=== PATIENT | male | born 1980 | race African-American/Black ===

== ENCOUNTER 2019-09-20 15:14 | Emergency (ER) | payer MEDICARE, OTHER ==
[~2019-09-20] VITALS: Ht 188 cm; Wt 109.5 kg
[2019-09-20 16:17] VITALS: BP 131/74
== END 2019-09-20 16:30 | disposition home or self-care (01) ==
LOC: FSED 15:14
DX: J02.9 Acute pharyngitis, unspecified (principal)
CPT/HCPCS: 83518; 87400; 99283

== ENCOUNTER 2019-10-05 23:17 | Emergency (ER) | payer MEDICARE, OTHER ==
[~2019-10-05] VITALS: Ht 188 cm; Wt 109.3 kg
--- OUTSIDE RECORDS SUMMARY | 2019-10-10 12:40 | XMS REPORT ---
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 Conditions or Problems Problem Name Problem Code Onset Date Status Entry Date Provider Comment Standard Description Annotate Folliculitis 704.8 Active Tyrone Mott MD Other specified diseases of hair and hair follicles High risk sexual behavior V69.2 Active Moreno Presley MD High-risk sexual behavior Tinea cruris 110.3 Active Moreno Presley MD Dermatophytosis of groin and perianal area Screening examination for venereal disease V74.5 Active Michael Monge MD Screening examination for venereal disease Screening for lipid disorder V77.91 Active Michael Monge MD Screening for lipoid disorders Screening, diabetes mellitus V77.1 Active Michale Monge MD Screening for diabetes mellitus Cough 786.2 Active Saravanan Braden EMBROIDERY FINISHER-C Cough Postnasal drip 784.91 Active Saravanan Braden EMBROIDERY FINISHER-C Postnasal drip Halitosis 784.99 Active Michael Monge MD Other symptoms involving head and neck Health screening V70.0 Active Ginette Hopkins RN Routine general medical examination at a health care facility PHARYNGITIS 462 Active Michael Monge MD Acute pharyngitis TINEA CRURIS 110.3 Active Solo MALDONADO Dermatophytosis of groin and perianal area CHLAMYDIAL INFECTION 099.41 Active Solo MALDONADO Nongonococcal urethritis [CHAU] due to Chlamydia trachomatis FAMILY PLANNING V25.09 Active Solo MALDONADO Encounter for other general counseling and advice on contraceptive management EXPOSURE TO, SEXUALLY TRANSMITTED DISEASE V01.6 Active Michael Monge MD Contact with or exposure to venereal diseases OTHER SYMPTOMS INVOLVING HEAD AND NECK 784.99 Active Michael Monge MD Other symptoms involving head and neck halitosis HYPERTENSION 401.9 Active Solo MALDONADO Unspecified essential hypertension Medication List Medication Instructions Start Date Stop Date Generic Name NDC Status Provider Patient Instruction KETOCONAZOLE 2 % EXTERNAL CREAM Apply to affected area daily x2 wks KETOCONAZOLE 95176108954 Active Jesus Cupit EMBROIDERY FINISHER Active NYSTATIN 941429 UNIT/GM EXTERNAL POWDER Apply to affected area two to three times daily after showering NYSTATIN 45363438932 Active Jesus Cupit EMBROIDERY FINISHER Active DOXYCYCLINE HYCLATE 100 MG ORAL CAPSULE 1 by mouth twice a day DOXYCYCLINE HYCLATE 100 MG ORAL CAPSULE 7890474 DOXYCYCLINE HYCLATE Inactive CICLOPIROX OLAMINE 0.77 % EXTERNAL CREAM apply to affected area every 12 hours (pharmacist, you may substitute ointment or gel if better cost) CICLOPIROX OLAMINE 0.77 % EXTERNAL CREAM 120421 CICLOPIROX OLAMINE Inactive KETOCONAZOLE 2 % EXTERNAL CREAM apply to area twice a day KETOCONAZOLE 2 % EXTERNAL CREAM 174278 KETOCONAZOLE Inactive KETOCONAZOLE 2 % EXTERNAL CREAM apply to area twice a day KETOCONAZOLE 2 % EXTERNAL CREAM 030529 KETOCONAZOLE Inactive AZITHROMYCIN 250 MG ORAL TABLET 2 tablets by mouth on day one then one tablet by mouth each day for a total of 5 days AZITHROMYCIN 250 MG ORAL TABLET 332938 AZITHROMYCIN Inactive CLARITIN 10 MG ORAL TABLET 1 by mouth every day for 7 days then As Needed for allergies CLARITIN 10 MG ORAL TABLET 216037 LORATADINE Inactive KETOCONAZOLE 2 % EXTERNAL CREAM apply to area twice a day KETOCONAZOLE 2 % EXTERNAL CREAM 20300529 KETOCONAZOLE Inactive TESSALON PERLES 100 MG ORAL CAPSULE 1 by mouth 3 times a day as needed for cough TESSALON PERLES 100 MG ORAL CAPSULE 197777 BENZONATATE Inactive FLUCONAZOLE 200 MG ORAL TABLET 1 By Mouth once a week for 4 weeks FLUCONAZOLE 200 MG ORAL TABLET FLUCONAZOLE Inactive KETOCONAZOLE 2 % EXTERNAL CREAM apply to area twice a day KETOCONAZOLE 2 % EXTERNAL CREAM 20300529 KETOCONAZOLE Inactive KETOCONAZOLE 2 % EXTERNAL CREAM apply to area twice a day KETOCONAZOLE 2 % EXTERNAL CREAM 20300529 KETOCONAZOLE Inactive KETOCONAZOLE 2 % EXTERNAL CREAM apply to area twice a day KETOCONAZOLE 2 % EXTERNAL CREAM 20300529 KETOCONAZOLE Inactive KETOCONAZOLE 2 % EXTERNAL CREAM apply to area twice a day KETOCONAZOLE 2 % EXTERNAL CREAM 20300529 KETOCONAZOLE Inactive DOXYCYCLINE HYCLATE 100 MG ORAL CAPSULE 1 by mouth twice a day DOXYCYCLINE HYCLATE 21377497814 No Longer Active Jesus SWARTZ Active CICLOPIROX OLAMINE 0.77 % EXTERNAL CREAM apply to affected area every 12 hours (pharmacist, you may substitute ointment or gel if better cost) CICLOPIROX OLAMINE 21369982169 No Longer Active Jesus SWARTZ Active KETOCONAZOLE 2 % EXTERNAL CREAM apply to area twice a day KETOCONAZOLE 25333381258 No Longer Active Michael Mariposa GARY Active KETOCONAZOLE 2 % EXTERNAL CREAM apply to area twice a day KETOCONAZOLE 79005380334 No Longer Active Michael Mariposa GARY Active AZITHROMYCIN 250 MG ORAL TABLET 2 tablets by mouth on day one then one tablet by mouth each day for a total of 5 days AZITHROMYCIN 26585640682 No Longer Active Michael Mariposa GARY Active CLARITIN 10 MG ORAL TABLET 1 by mouth every day for 7 days then As Needed for allergies LORATADINE 90056109893 No Longer Active Michael Mariposa GARY Active KETOCONAZOLE 2 % EXTERNAL CREAM apply to area twice a day KETOCONAZOLE 23392216333 No Longer Active Saravanan Braden EMBROIDERY FINISHER-C Active TESSALON PERLES 100 MG ORAL CAPSULE 1 by mouth 3 times a day as needed for cough BENZONATATE 81875157908 No Longer Active Michael Mariposa GARY Active FLUCONAZOLE 200 MG ORAL TABLET 1 By Mouth once a week for 4 weeks FLUCONAZOLE 95004651425 No Longer Active Michael Mariposa GARY Active KETOCONAZOLE 2 % EXTERNAL CREAM apply to area twice a day KETOCONAZOLE 81083523530 No Longer Active Michael Mariposa GARY Active KETOCONAZOLE 2 % EXTERNAL CREAM apply to area twice a day KETOCONAZOLE 39108718420 No Longer Active Donaldo Jackson SINTERING PRESS OPERATOR-C Active KETOCONAZOLE 2 % EXTERNAL CREAM apply to area twice a day KETOCONAZOLE 35149465061 No Longer Active Solo MALDONADO Active KETOCONAZOLE 2 % EXTERNAL CREAM apply to area twice a day KETOCONAZOLE 61896359345 No Longer Active Solo MALDONADO Active Advance Directives Directive Description Start Date DISCUSSED - NO DECISION MADE Vital Signs Date Name Value Unit Range Description blood pressure, diastolic 92 mm[Hg] BP cooper blood pressure, systolic 152 mm[Hg] BP sys height E&M 74 [in_us] Bdy height pulse rate E&M 85 /min Heart rate respiratory rate E&M 12 /min Resp rate temperature E&M 98.2 [degF] Body temperature weight E&M 248.50 [lb_av] Weight Measured blood pressure, diastolic 90 mm[Hg] BP cooper blood pressure, systolic 149 mm[Hg] BP sys height E&M 74 [in_us] Bdy height pulse rate E&M 61 /min Heart rate temperature E&M 97.9 [degF] Body temperature weight E&M 249 [lb_av] Weight Measured blood pressure, diastolic 84 mm[Hg] BP cooper blood pressure, systolic 145 mm[Hg] BP sys height E&M 74 [in_us] Bdy height pulse rate E&M 58 /min Heart rate respiratory rate E&M 15 /min Resp rate temperature E&M 97.9 [degF] Body temperature weight E&M 248 [lb_av] Weight Measured Diagnostic Results Date Name Value Unit Range Description Lab Report: Comp. Metabolic Panel (14), Lipid Panel - Chemistry very low density lipoproteins 16 mg/dL 5-40 Lab Report: RPR, Rfx Qn RPR/Confirm TP, Panel [id number], HCV Antibody, HBsA ... - Chemistry hepatitis B surface antigen Negative Negative Lab Report: Comp. Metabolic Panel (14), Lipid Panel - Chemistry chloride, serum 99 mmol/L 96-106 urea nitrogen, blood 20 mg/dL 6-20 Lab Report: CBC With Differential/Platelet, Lipid Panel, Panel [id number], C ... - Serology HIV-1/HIV-2 Ab, serum Non Reactive Non Reactive Lab Report: CBC With Differential/Platelet, Lipid Panel, Panel [id number], C ... - Hematology mean corpuscular hemoglobin concentration, RBC 33.7 G/DL % 31.5-35.7 erythrocyte (RBC) count 5.08 X10E6/UL 10*6/mm3 4.14-5.80 Lab Report: RPR, Rfx Qn RPR/Confirm TP, Panel [id number], HCV Antibody, HBsA ... - Serology hepatitis C antibody, serum <0.1 0.0-0.9 Lab Report: CBC With Differential/Platelet, Lipid Panel, Panel [id number], C ... - Chemistry Absolute Neutrophils 2.3 X10E3/UL 10*3/uL 1.4-7.0 Lab Report: Comp. Metabolic Panel (14), Lipid Panel - Chemistry LDL cholesterol, serum 158 mg/dL 0-99 urea nitrogen/creatinine ratio, serum 18 9-20 Lab Report: CBC With Differential/Platelet, Lipid Panel, Panel [id number], C ... - Hematology mean corpuscular volume, RBC 93 fL 79-97 Lab Report: Comp. Metabolic Panel (14), Lipid Panel - Chemistry HDL cholesterol, serum 44 mg/dL >39 Lab Report: CBC With Differential/Platelet, Lipid Panel, Panel [id number], C ... - Hematology monocytes as percent of blood leukocytes 8 % 4-12 Lab Report: Comp. Metabolic Panel (14), Lipid Panel - Chemistry albumin/globulin ratio, serum 1.7 1.2-2.2 creatinine, serum 1.09 mg/dL 0.76-1.27 cholesterol, serum 218 mg/dL 100-199 Lab Report: CBC With Differential/Platelet, Comp. Metabolic Panel (14), ... - Serology hepatitis A antibody, IgM Negative Negative Lab Report: Comp. Metabolic Panel (14), Lipid Panel - Chemistry bilirubin, serum, total 0.3 mg/dL 0.0-1.2 Lab Report: CBC With Differential/Platelet, Lipid Panel, Panel [id number], C ... - Hematology Eosinophil Absolute Count 0.1 X10E3/UL 10*3/uL 0.0-0.4 Lab Report: H. pylori Stool Ag, EIA - Microbiology Helicobacter pylori antigen, stool Negative Negative Lab Report: Chlamydia/GC Amplification - Lab chlamydia DNA probe Negative Negative Lab Report: Comp. Metabolic Panel (14), Lipid Panel - Chemistry aspartate aminotransferase (SGOT), serum 21 U/L 0-40 Lab Report: CBC With Differential/Platelet, Lipid Panel, Panel [id number], C ... - Hematology red blood cell distribution width 13.6 % 12.3-15.4 leukocyte count, blood 5.1 X10E3/UL 10*3/mm3 3.4-10.8 Lab Report: Comp. Metabolic Panel (14), Lipid Panel - Chemistry potassium, serum 4.0 mmol/L 3.5-5.2 Lab Report: Ct/GC ANITHA, Pharyngeal - Microbiology Neisseria gonorrhoeae, throat culture Negative Negative Lab Report: Comp. Metabolic Panel (14), Lipid Panel - Chemistry albumin, serum 4.6 g/dL 3.5-5.5 Lab Report: CBC With Differential/Platelet, Lipid Panel, Panel [id number], C ... - Chemistry immature granulocytes, percentage of total cells, blood 0 % 0-2 Lab Report: CBC With Differential/Platelet, Lipid Panel, Panel [id number], C ... - Hematology lymphocyte count, blood, automated 2.2 X10E3/UL 10*3/mm3 0.7-3.1 Lab Report: Chlamydia/GC Amplification - Microbiology Neisseria gonorrhoeae DNA probe Negative Negative Lab Report: CBC With Differential/Platelet, Lipid Panel, Panel [id number], C ... - Hematology hematocrit, blood 47.2 % 37.5-51.0 Lab Report: Comp. Metabolic Panel (14), Lipid Panel - Chemistry sodium, serum 142 mmol/L 134-144 Lab Report: CBC With Differential/Platelet, Lipid Panel, Panel [id number], C ... - Hematology neutrophils as percent of blood leukocytes 47 % 40-74 Internal Correspondence: Pre-Visit Planning/# disconnected - Other List of providers caring for patient Dr. Michael Monge, Solo Cespedes PA, Zoraida Gomez RN, Tana Cope MA,Jeny Johnson MA, Kesha Ram MA, [facility], Jennie Irvin [facility] Lab Report: CBC With Differential/Platelet, Lipid Panel, Panel [id number], C ... - Hematology basophils as percent of blood leukocytes 0 % 0-3 Office Visit: Pharyngitis - Serology influenza virus A antigen negative Lab Report: RPR, Rfx Qn RPR/Confirm TP, Panel [id number], HCV Antibody, HBsA ... - Serology rapid plasma reagin antibody, serum Non Reactive Non Reactive Lab Report: Comp. Metabolic Panel (14), Lipid Panel - Chemistry carbon dioxide, venous blood 27 mmol/L 18-29 triglyceride, serum, fasting 81 mg/dL 0-149 calcium, serum 9.8 mg/dL 8.7-10.2 alanine aminotransferase (SGPT), serum 18 U/L 0-44 Lab Report: CBC With Differential/Platelet, Lipid Panel, Panel [id number], C ... - Hematology mean corpuscular hemoglobin, RBC 31.3 pg 26.6-33.0 Lab Report: Comp. Metabolic Panel (14), Lipid Panel - Chemistry protein, total, serum 7.3 g/dL 6.0-8.5 alkaline phosphatase, serum 59 U/L 39-117 Office Visit: Pharyngitis - Lab Microbial identification kit, rapid strep method negative Lab Report: CBC With Differential/Platelet, Lipid Panel, Panel [id number], C ... - Hematology hemoglobin, blood 15.9 g/dL 12.6-17.7 lymphocytes as percent of blood leukocytes 43 % 14-46 Lab Report: Lipid Panel, Hemoglobin A1c, RPR, Rfx Qn RPR/Confirm TP, Valenzuela ... - Chemistry hemoglobin A1C, blood, as % of total hemoglobin 5.7 % 4.8-5.6 Lab Report: Comp. Metabolic Panel (14), Lipid Panel - Genetics/fertility eGFR if 98 mL/min/1.73m2 >59 Lab Report: CBC With Differential/Platelet, Comp. Metabolic Panel (14), ... - Serology hepatitis B virus core antibody, IgM, PT, serum, quantitative Negative Negative Lab Report: CBC With Differential/Platelet, Lipid Panel, Panel [id number], C ... - Hematology basophil count, absolute 0.0 x10E3/uL 0.0-0.2 Lab Report: Comp. Metabolic Panel (14), Lipid Panel - Chemistry globulin, serum 2.7 1.5-4.5 Estimated Glomerular Filtration Rate (calc) 85 mL/min/1.73m2 >59 Lab Report: CBC With Differential/Platelet, Comp. Metabolic Panel (14), ... - Serology hepatitis B surface antibody 0.45 0.00-0.99 Lab Report: CBC With Differential/Platelet, Lipid Panel, Panel [id number], C ... - Hematology eosinophils as percent of blood leukocytes 2 % 0-5 Lab Report: Comp. Metabolic Panel (14), Lipid Panel - Chemistry blood glucose, random 96 mg/dL 65-99 Lab Report: CBC With Differential/Platelet, Comp. Metabolic Panel (14), ... - Chemistry estimated glomerular filtration rate >59 mL/min/1.73 mL/min >59 Lab Report: CBC With Differential/Platelet, Lipid Panel, Panel [id number], C ... - Hematology monocyte count, blood, automated 0.4 X10E3/UL 10*3/uL 0.1-0.9 platelet count 270 X10E3/UL 10*3/mm3 155-379 Encounters Date Encounter Provider Code Facility 10:57:04 CDT Est Patient Exp Problem - 93198 Jesus SWARTZ CPT-53801 [facility] 11:34:21 CDT Ofc Vst, Est Level IV Tyrone Mott MD CPT-83345 [facility] 10:15:35 CDT Ofc Vst, Est Level II Moreno Presley MD CPT-07267 [facility] 10:36:45 WILDERNESS GUIDE Ofc Vst, Est Level III Moreno Presley MD CPT-53164 [facility] 09:34:16 CDT Est Patient Exp Problem - 21542 Michael Monge MD CPT-17850 [facility] 15:42:46 WILDERNESS GUIDE Est Patient Exp Problem - 79593 Michael Monge MD CPT-49823 [facility] 14:06:10 CDT Est Patient Problem Focus - 59983 Saravanan Temple Chekoal EMBROIDERY FINISHER-C CPT-16322 [facility] 21:22:43 CDT Est Patient Exp Problem - 09711 Michael Monge MD CPT-65409 [facility] 10:53:53 CDT Est Patient Exp Problem - 52304 Michael Monge MD CPT-34979 [facility] 11:21:45 CDT Est Patient Nurse - Only Visit - 52561 Ginette Hopkins RN CPT-62409 [facility] 08:37:54 CDT Est Patient Exp Problem - 40940 Donaldo Jackson SINTERING PRESS OPERATOR-C CPT-46165 [facility] 12:06:59 WILDERNESS GUIDE Ofc Vst, Est Level IV Michael Monge MD CPT-95205 [facility] 12:52:49 CDT Est Patient Exp Problem - 02890 Solo MALDONADO CPT-36322 [facility] 12:43:42 CDT Est Patient Exp Problem - 32812 Solo MALDONADO CPT-51074 [facility] 14:52:08 WILDERNESS GUIDE Est Patient Exp Problem - 75593 Solo MALDONADO CPT-80343 [facility] 15:12:09 CDT Ofc Vst, Est Level III Michael Monge MD CPT-33319 [facility] 09:08:15 CDT Ofc Vst, Est Level III Michael Monge MD CPT-54996 [facility] Procedures Code Procedure Name Date Entry Date Standard Description CPT-77188 Rapid Flu - In House 16:36:35 CDT CPT-27254 Rapid Strep - In House 16:36:35 CDT CPT-78299 Handling of specimen for transfer 12:06:59 WILDERNESS GUIDE CPT-67512 Venipuncture 12:06:59 WILDERNESS GUIDE CPT-J8499 Fluconazole 200 mg 12:06:59 WILDERNESS GUIDE CPT-50137 Rapid Strep - In House 12:06:59 WILDERNESS GUIDE CPT-A4267 Condom - Male 12:52:49 CDT CPT-30645 Handling of specimen for transfer 12:52:49 CDT CPT-95358 Venipuncture 12:52:49 CDT CPT-Q0144 Azithromycin, oral, 1 g 12:43:42 CDT CPT-A4267 Condom - Male 14:52:08 WILDERNESS GUIDE CPT-37450 Handling of specimen for transfer 14:52:08 WILDERNESS GUIDE CPT-06887 Venipuncture 14:52:08 WILDERNESS GUIDE CPT-10281 Handling of specimen for transfer from clinic to lab 17:14:12 CDT CPT-93978 Venipuncture 17:14:12 CDT
--- OUTSIDE RECORDS SUMMARY | 2019-10-10 12:40 | XMS REPORT ---
Author Author Admin, [place] Organization Unknown Address Unknown Phone Unavailable PROBLEMS Condition Status Date Provider Notes Folliculitis active Tyrone Mott High risk sexual behavior active Moreno Fernandez Tinea cruris active Moreno Fernandez Screening examination for venereal disease active Michael Monge Screening for lipid disorder active Michael Monge Screening, diabetes mellitus active Michael Monge Cough active Saravanan [facility] Postnasal drip active Saravanan [facility] Halitosis active Michael Monge Health screening active Ginette Kellie PHARYNGITIS active Michael Monge TINEA CRURIS active Solo Cespedes CHLAMYDIAL INFECTION active Solo Cespedes FAMILY PLANNING active Solo Cespedes OTHER SYMPTOMS INVOLVING HEAD AND NECK active Michael Monge halitosis EXPOSURE TO, SEXUALLY TRANSMITTED DISEASE active Michael Monge ENCOUNTERS Date Type Provider Location Encounter Diagnosis - Ambulatory Encounter Apple Cat [facility] Adult Medicine UNK - Ambulatory Encounter Jesus Mc [facility] Adult Medicine UNK - Ambulatory Encounter Jesus Guerin [facility] Adult Medicine UNK - Ambulatory Encounter Michael Monge [facility] Adult Medicine UNK - Ambulatory Encounter Tyrone Mott [facility] Adult Medicine UNK - Ambulatory Encounter [facility] UNK - Ambulatory Encounter [facility]e [facility] Adult Medicine UNK - Ambulatory Encounter Patricia Jae [facility] Adult Medicine UNK - Ambulatory Encounter Tyrone Mott [facility] Adult Medicine UNK - Ambulatory Encounter Tyrone Hillman [facility] Adult Medicine Folliculitis - Ambulatory Encounter Moreno Fernandez Moreno Fernandez [facility] Adult Medicine High risk sexual behavior - Ambulatory Encounter Moreno Fernandez Moreno Fernandez [facility] Adult Medicine UNK - Ambulatory Encounter Moreno Fernandez Moreno Fernandez [facility] Adult Medicine UNK - Ambulatory Encounter Moreno Fernandez Moreno Fernandez [facility] Adult Medicine UNK - Ambulatory Encounter Moreno Fernandez Moreno Fernandez [facility] Adult Medicine UNK - Ambulatory Encounter Moreno Fernandez Moreno Fernandez [facility] Adult Medicine UNK - Ambulatory Encounter Moreno Fernandez Moreno Fernandez [facility] Adult Medicine UNK - Ambulatory Encounter Moreno Fernandez Moreno Fernandez [facility] Adult Medicine UNK - Ambulatory Encounter Moerno Fernandez Moreno Fernandez [facility] Adult Medicine UNK - Ambulatory Encounter Moreno Fernandez Moreno Fernandez Porsha Yadav [facility] Adult Medicine Tinea cruris - Ambulatory Encounter Michael Rowe [facility] Adult Medicine UNK - Ambulatory Encounter Michael Monge [facility] Adult Medicine UNK - Ambulatory Encounter Michael Rowe [facility] Adult Medicine UNK - Ambulatory Encounter Jessica Hillman [facility] Adult Medicine UNK - Ambulatory Encounter Jessica Hillman [facility] Adult Medicine UNK - Ambulatory Encounter Michael Mariposa Monge [facility] Adult Medicine UNK - Ambulatory Encounter Michael Rowe [facility] Adult Medicine Screening examination for venereal disease - Ambulatory Encounter Michael Mariposa Quispe [facility] UNK - Ambulatory Encounter Richar Chacon [facility] Adult Medicine UNK - Ambulatory Encounter [facility] Adult Medicine UNK - Ambulatory Encounter Michael Mariposa Monge [facility] Adult Medicine UNK - Ambulatory Encounter Michael Mariposa [facility] Adult Medicine UNK - Ambulatory Encounter Michael Mariposa Guaman [facility] Adult Medicine UNK - Ambulatory Encounter Akila Blaise [facility] Adult Medicine UNK - Ambulatory Encounter Michael Mariposa Monge [facility] Adult Medicine UNK - Ambulatory Encounter Michael Mariposa Rowe [facility] Adult Medicine Screening, diabetes mellitusScreening for lipid disorder - Ambulatory Encounter Michael Guaman [facility] UNK - Ambulatory Encounter Saravanan Carroll'Facundo LM Adult Medicine UNK - Ambulatory Encounter Saravanan Guerin [facility] Adult Medicine Postnasal dripCough - Ambulatory Encounter Michael Mariposa Rowe [facility] Adult Medicine UNK - Ambulatory Encounter Michael Mariposa oMnge [facility] Adult Medicine UNK - Ambulatory Encounter Michael Monge Michael Rowe [facility] Adult Medicine UNK - Ambulatory Encounter Michael Mariposa Monge [facility] Adult Medicine UNK - Ambulatory Encounter Michael Monge [facility] Adult Medicine UNK - Ambulatory Encounter Michael Monge Michael Monge Marija Rowe [facility] Adult Medicine Halitosis - Ambulatory Encounter Zachary Pepe [facility] Adult Medicine UNK - Ambulatory Encounter Ramya Quintanillas [facility] Adult Medicine UNK - Ambulatory Encounter Michael Mariposa Monge [facility] Adult Medicine UNK - Ambulatory Encounter Michael Monge Michael Rebollarine Kerrychivo Rafy [facility] Adult Medicine UNK - Ambulatory Encounter Ginette Hopkins [facility] Adult Medicine Health screening - Ambulatory Encounter Donaldo [facility] Adult Medicine UNK - Ambulatory Encounter Donaldo Fletcher [facility] Adult Medicine UNK - Ambulatory Encounter Donaldo Jackson [facility] Adult Medicine UNK - Ambulatory Encounter Donaldo Jackson [facility] Adult Medicine UNK - Ambulatory Encounter Donaldo Jackson [facility] Adult Medicine UNK - Ambulatory Encounter Donaldo Fletcher [facility] Adult Medicine UNK - Ambulatory Encounter Qing Ely [facility] Adult Medicine UNK - Ambulatory Encounter [facility] UNK - Ambulatory Encounter [facility] UNK - Ambulatory Encounter Jennie Brandee [facility] UNK - Ambulatory Encounter Michael Mariposa Rodriguez Monge [facility] UNK - Ambulatory Encounter Michael Mariposa Monge [facility] UNK - Ambulatory Encounter Michael Mariposa Johnson [facility] PHARYNGITIS - Ambulatory Encounter Michael Mariposa Monge [facility] UNK - Ambulatory Encounter Jennie Brandee [facility] UNK - Ambulatory Encounter Solo Cespedes [facility] UNK - Ambulatory Encounter Solo Ram Bessyayesha [facility] UNK - Ambulatory Encounter Solo Morse [facility] TINEA CRURIS - Ambulatory Encounter Solo Buchananguera [facility] CHLAMYDIAL INFECTION - Ambulatory Encounter Solo Cespedes [facility] UNK - Ambulatory Encounter Solo Cespedes [facility] UNK - Ambulatory Encounter Solo Cespedes [facility] UNK - Ambulatory Encounter Solo Buchananguraul [facility] FAMILY PLANNING - Ambulatory Encounter Michael Mariposa Buchananguera [facility] UNK - Ambulatory Encounter Michael Mariposa Monge [facility] UNK - Ambulatory Encounter Michael Mariposa Monge [facility] UNK - Ambulatory [facility] Encounter [facility] Johnson [facility] EXPOSURE TO, SEXUALLY TRANSMITTED DISEASEOTHER SYMPTOMS INVOLVING HEAD AND NECK - Ambulatory Encounter LC Lab Provider [facility] UNK - Ambulatory Encounter LC Lab Provider [facility] Services UNK - Ambulatory Encounter LC Lab Provider [facility] Services UNK - Ambulatory Encounter LC Lab Provider [facility] UNK - Ambulatory Encounter LC Lab Provider [facility] UNK - Ambulatory Encounter LC Lab Provider [facility] UNK VITAL SIGNS No Information Available Allergies No Known Allergy Information REASON FOR REFERRAL No Information Available RESULTS Date Observation Value Provider Reference Range Interpretation Location Neisseria gonorrhoeae DNA probe Negative [facility] Negative " chlamydia DNA probe Negative [facility] Negative hepatitis B surface antigen Negative [facility] Negative " hepatitis C antibody, serum <0.1 [facility] 0.0-0.9 " HIV-CMIA (Chemiluminescent Microparticle Immuno Assay) Non Reactive [facility] Non Reactive " rapid plasma reagin antibody, serum Non Reactive [facility] Non Reactive Neisseria gonorrhoeae, throat culture Negative [facility] Negative Neisseria gonorrhoeae DNA probe Negative [facility] Negative " chlamydia DNA probe Negative [facility] Negative HIV-CMIA (Chemiluminescent Microparticle Immuno Assay) Non Reactive [facility] Non Reactive " rapid plasma reagin antibody, serum Non Reactive [facility] Non Reactive LDL cholesterol, serum 158 mg/dL [facility] 0-99 High " very low density lipoproteins 16 mg/dL [facility] 5-40 " HDL cholesterol, serum 44 mg/dL [facility] >39 " triglyceride, serum, fasting 81 mg/dL [facility] 0-149 " cholesterol, serum 218 mg/dL [facility] 100-199 High " alanine aminotransferase (SGPT), serum 18 1/L [facility] 0-44 " aspartate aminotransferase (SGOT), serum 21 1/L [facility] 0-40 " alkaline phosphatase, serum 59 1/L [facility] 39-117 " bilirubin, serum, total 0.3 mg/dL [facility] 0.0-1.2 " albumin/globulin ratio, serum 1.7 [facility] 1.2-2.2 " globulin, serum 2.7 [facility] 1.5-4.5 " albumin, serum 4.6 g/dL [facility] 3.5-5.5 " protein, total, serum 7.3 g/dL [facility] 6.0-8.5 " calcium, serum 9.8 mg/dL [facility] 8.7-10.2 " carbon dioxide, venous blood 27 mmol/L [facility] 18-29 " chloride, serum 99 mmol/L [facility] 96-106 " potassium, serum 4.0 mmol/L [facility] 3.5-5.2 " sodium, serum 142 mmol/L [facility] 134-144 " urea nitrogen/creatinine ratio, serum 18 [facility] 9-20 " eGFR if 98 mL/min/((173/100).m2) [facility] >59 " Estimated Glomerular Filtration Rate (calc) 85 mL/min/((173/100).m2) [facility] >59 " creatinine, serum 1.09 mg/dL [facility] 0.76-1.27 " urea nitrogen, blood 20 mg/dL [facility] 6-20 " blood glucose, random 96 mg/dL [facility] 65-99 Neisseria gonorrhoeae DNA probe Negative [facility] Negative " chlamydia DNA probe Negative [facility] Negative HIV-CMIA (Chemiluminescent Microparticle Immuno Assay) Non Reactive [facility] Non Reactive " rapid plasma reagin antibody, serum Non Reactive [facility] Non Reactive " hemoglobin A1C, blood, as % of total hemoglobin 5.7 % [facility] 4.8-5.6 High " LDL cholesterol, serum 114 mg/dL [facility] 0-99 High " very low density lipoproteins 28 mg/dL [facility] 5-40 " HDL cholesterol, serum 51 mg/dL [facility] >39 " triglyceride, serum, fasting 142 mg/dL [facility] 0-149 " cholesterol, serum 193 mg/dL [facility] [id number]/12/16 rapid plasma reagin antibody, serum Non Reactive [facility] Non Reactive Helicobacter pylori antigen, stool Negative [facility] Negative Neisseria gonorrhoeae, throat culture Negative [facility] Negative influenza virus A antigen negative [facility] " Microbial identification kit, rapid strep method [facility] antigen Negative [facility] Negative " hepatitis C antibody, serum <0.1 [facility] 0.0-0.9 " HIV-CMIA (Chemiluminescent Microparticle Immuno Assay) Non Reactive [facility] Non Reactive " rapid plasma reagin antibody, serum Non Reactive [facility] Non Reactive " Neisseria gonorrhoeae DNA probe Negative [facility] Negative " chlamydia DNA probe Negative [facility] Negative hepatitis B surface antigen Negative [facility] Negative " blood glucose, random 75 mg/dL [facility] 65-99 " rapid plasma reagin antibody, serum Non Reactive [facility] Non Reactive " hepatitis C antibody, serum <0.1 [facility] 0.0-0.9 " Neisseria gonorrhoeae DNA probe Negative [facility] Negative " chlamydia DNA probe Negative [facility] Negative " HIV-1/HIV-2 Ab, serum Non Reactive [facility] Non Reactive " LDL cholesterol, serum 128 mg/dL [facility] 0-99 High " very low density lipoproteins 25 mg/dL [facility] 5-40 " HDL cholesterol, serum 46 mg/dL [facility] >39 " triglyceride, serum, fasting 124 mg/dL [facility] 0-149 " cholesterol, serum 199 mg/dL [facility] 100-199 " immature granulocytes, percentage of total cells, blood 0 % [facility] 0-2 " basophil count, absolute 0.0 x10E3/uL [facility] 0.0-0.2 " Eosinophil Absolute Count 0.1 X10E3/UL [facility] 0.0-0.4 " monocyte count, blood, automated 0.4 X10E3/UL [facility] 0.1-0.9 " lymphocyte count, blood, automated 2.2 X10E3/UL [facility] 0.7-3.1 " Absolute Neutrophils 2.3 X10E3/UL [facility] 1.4-7.0 " basophils as percent of blood leukocytes 0 % [facility] 0-3 " eosinophils as percent of blood leukocytes 2 % [facility] 0-5 " monocytes as percent of blood leukocytes 8 % [facility] 4-12 " lymphocytes as percent of blood leukocytes 43 % [facility] 14-46 " neutrophils as percent of blood leukocytes 47 % [facility] 40-74 " platelet count 270 X10E3/UL [facility] 155-379 " red blood cell distribution width 13.6 % [facility] 12.3-15.4 " mean corpuscular hemoglobin concentration, RBC 33.7 G/DL [facility] 31.5-35.7 " mean corpuscular hemoglobin, RBC 31.3 pg [facility] 26.6-33.0 " mean corpuscular volume, RBC 93 fL [facility] 79-97 " hematocrit, blood 47.2 % [facility] 37.5-51.0 " hemoglobin, blood 15.9 g/dL [facility] 12.6-17.7 " erythrocyte (RBC) count 5.08 X10E6/UL [facility] 4.14-5.80 " leukocyte count, blood 5.1 X10E3/UL [facility] 3.4-10.8 hepatitis B surface antigen Negative [facility] Negative " blood glucose, random 90 mg/dL [facility] 65-99 " rapid plasma reagin antibody, serum Non Reactive [facility] Non Reactive " hepatitis C antibody, serum <0.1 [facility] 0.0-0.9 " Neisseria gonorrhoeae DNA probe Negative [facility] Negative " chlamydia DNA probe Positive [facility] Negative Abnormal " HIV-1/HIV-2 Ab, serum Non Reactive [facility] Non Reactive " LDL cholesterol, serum 143 mg/dL [facility] 0-99 High " very low density lipoproteins 16 mg/dL [facility] 5-40 " HDL cholesterol, serum 48 mg/dL [facility] >39 " triglyceride, serum, fasting 80 mg/dL [facility] 0-149 " cholesterol, serum 207 mg/dL [facility] 100-199 High " immature granulocytes, percentage of total cells, blood 0 % [facility] 0-2 " basophil count, absolute 0.0 x10E3/uL [facility] 0.0-0.2 " Eosinophil Absolute Count 0.1 X10E3/UL [facility] 0.0-0.4 " monocyte count, blood, automated 0.4 X10E3/UL [facility] 0.1-1.0 " lymphocyte count, blood, automated 3.0 X10E3/UL [facility] 0.7-4.5 " Absolute Neutrophils 1.6 X10E3/UL [facility] 1.8-7.8 Low " basophils as percent of blood leukocytes 0 % [facility] 0-3 " eosinophils as percent of blood leukocytes 2 % [facility] 0-7 " monocytes as percent of blood leukocytes 7 % [facility] 4-13 " lymphocytes as percent of blood leukocytes 60 % [facility] 14-46 High " neutrophils as percent of blood leukocytes 31 % [facility] 40-74 Low " platelet count 249 X10E3/UL [facility] 140-415 " red blood cell distribution width 13.4 % [facility] 12.3-15.4 " mean corpuscular hemoglobin concentration, RBC 34.2 G/DL [facility] 31.5-35.7 " mean corpuscular hemoglobin, RBC 31.9 pg [facility] 26.6-33.0 " mean corpuscular volume, RBC 93 fL [facility] 79-97 " hematocrit, blood 46.8 % [facility] 37.5-51.0 " hemoglobin, blood 16.0 g/dL [facility] 12.6-17.7 " erythrocyte (RBC) count 5.02 X10E6/UL [facility] 4.14-5.80 " leukocyte count, blood 5.2 X10E3/UL [facility] 4.0-10.5 hepatitis B surface antigen Negative [facility] Negative " hepatitis C antibody, serum <0.1 [facility] 0.0-0.9 " Neisseria gonorrhoeae DNA probe Negative [facility] Negative " chlamydia DNA probe Negative [facility] Negative " LDL cholesterol, serum 120 mg/dL [facility] 0-99 High " very low density lipoproteins 28 mg/dL [facility] 5-40 " HDL cholesterol, serum 55 mg/dL [facility] >39 " triglyceride, serum, fasting 140 mg/dL [facility] 0-149 " cholesterol, serum 203 mg/dL [facility] 100-199 High " alanine aminotransferase (SGPT), serum 14 1/L [facility] 0-55 " aspartate aminotransferase (SGOT), serum 18 1/L [facility] 0-40 " alkaline phosphatase, serum 58 1/L [facility] 25-150 " bilirubin, serum, total 0.3 mg/dL [facility] 0.0-1.2 " albumin/globulin ratio, serum 1.6 [facility] 1.1-2.5 " globulin, serum 2.8 [facility] 1.5-4.5 " albumin, serum 4.5 g/dL [facility] 3.5-5.5 " protein, total, serum 7.3 g/dL [facility] 6.0-8.5 " calcium, serum 9.5 mg/dL [facility] 8.7-10.2 " carbon dioxide, venous blood 29 mmol/L [facility] 20-32 " chloride, serum 99 mmol/L [facility] 97-108 " potassium, serum 4.1 mmol/L [facility] 3.5-5.2 " sodium, serum 141 mmol/L [facility] 134-144 " urea nitrogen/creatinine ratio, serum 14 [facility] 8-19 " eGFR if 112 mL/min/((173/100).m2) [facility] >59 " Estimated Glomerular Filtration Rate (calc) 97 mL/min/((173/100).m2) [facility] >59 " creatinine, serum 1.01 mg/dL [facility] 0.76-1.27 " urea nitrogen, blood 14 mg/dL [facility] 6-20 " blood glucose, random 70 mg/dL [facility] 65-99 " immature granulocytes, percentage of total cells, blood 0 % [facility] 0-2 " basophil count, absolute 0.0 x10E3/uL [facility] 0.0-0.2 " Eosinophil Absolute Count 0.1 X10E3/UL [facility] 0.0-0.4 " monocyte count, blood, automated 0.3 X10E3/UL [facility] 0.1-1.0 " lymphocyte count, blood, automated 2.9 X10E3/UL [facility] 0.7-4.5 " Absolute Neutrophils 1.6 X10E3/UL [facility] 1.8-7.8 Low " basophils as percent of blood leukocytes 1 % [facility] 0-3 " eosinophils as percent of blood leukocytes 2 % [facility] 0-7 " monocytes as percent of blood leukocytes 6 % [facility] 4-13 " lymphocytes as percent of blood leukocytes 59 % [facility] 14-46 High " neutrophils as percent of blood leukocytes 32 % [facility] 40-74 Low " platelet count 238 X10E3/UL [facility] 140-415 " red blood cell distribution width 13.3 % [facility] 11.7-15.0 " mean corpuscular hemoglobin concentration, RBC 34.5 G/DL [facility] 32.0-36.0 " mean corpuscular hemoglobin, RBC 31.9 pg [facility] 27.0-34.0 " mean corpuscular volume, RBC 93 fL [facility] 80-98 " hematocrit, blood 44.4 % [facility] 36.0-50.0 " hemoglobin, blood 15.3 g/dL [facility] 12.5-17.0 " erythrocyte (RBC) count 4.80 X10E6/UL [facility] 4.10-5.60 " leukocyte count, blood 4.8 X10E3/UL [facility] 4.0-10.5 hepatitis B surface antigen Negative [facility] Negative hepatitis C antibody, serum <0.1 [facility] 0.0-0.9 Neisseria gonorrhoeae DNA probe Positive [facility] Negative Abnormal " chlamydia DNA probe Negative [facility] Negative hepatitis B surface antigen Negative [facility] Negative " hepatitis C antibody, serum <0.1 [facility] 0.0-0.9 Neisseria gonorrhoeae DNA probe Negative [facility] Negative " chlamydia DNA probe Negative [facility] Negative hepatitis B surface antigen Negative [facility] Negative " hepatitis C antibody, serum <0.1 [facility] 0.0-0.9 Neisseria gonorrhoeae DNA probe Negative [facility] Negative " chlamydia DNA probe Negative [facility] Negative hepatitis B surface antibody 0.45 [facility] 0.00-0.99 " HIV-1/HIV-2 Ab, serum Non Reactive [facility] Non Reactive " hepatitis C antibody, serum <0.1 [facility] 0.0-0.9 " hepatitis B virus core antibody, IgM, PT, serum, quantitative Negative [facility] Negative " hepatitis B surface antigen Negative [facility] Negative " hepatitis A antibody, IgM Negative [facility] Negative LDL cholesterol, serum 162 mg/dL [facility] 0-99 High " very low density lipoproteins 12 mg/dL [facility] 5-40 " HDL cholesterol, serum 56 mg/dL [facility] >39 " triglyceride, serum, fasting 61 mg/dL [facility] 0-149 " cholesterol, serum 230 mg/dL [facility] 100-199 High " alanine aminotransferase (SGPT), serum 18 1/L [facility] 0-55 " aspartate aminotransferase (SGOT), serum 25 1/L [facility] 0-40 " alkaline phosphatase, serum 62 1/L [facility] 25-150 " bilirubin, serum, total 0.5 mg/dL [facility] 0.1-1.2 " albumin/globulin ratio, serum 1.5 [facility] 1.1-2.5 " globulin, serum 3.1 [facility] 1.5-4.5 " albumin, serum 4.6 g/dL [facility] 3.5-5.5 " protein, total, serum 7.7 g/dL [facility] 6.0-8.5 " calcium, serum 9.6 mg/dL [facility] 8.5-10.6 " carbon dioxide, venous blood 24 mmol/L [facility] 20-32 " chloride, serum 103 mmol/L [facility] 97-108 " potassium, serum 4.1 mmol/L [facility] 3.5-5.2 " sodium, serum 143 mmol/L [facility] 135-145 " urea nitrogen/creatinine ratio, serum 18 [facility] 8-27 " estimated glomerular filtration rate >59 mL/min/1.73 [facility] >59 " creatinine, serum 1.13 mg/dL [facility] 0.76-1.27 " urea nitrogen, blood 20 mg/dL [facility] 5-26 " blood glucose, random 72 mg/dL [facility] 65-99 basophil count, absolute 0.0 x10E3/uL [facility] 0.0-0.2 " Eosinophil Absolute Count 0.1 X10E3/UL [facility] 0.0-0.4 " monocyte count, blood, automated 0.3 X10E3/UL [facility] 0.1-1.0 " lymphocyte count, blood, automated 2.3 X10E3/UL [facility] 0.7-4.5 " Absolute Neutrophils 2.0 X10E3/UL [facility] 1.8-7.8 " basophils as percent of blood leukocytes 1 % [facility] 0-3 " eosinophils as percent of blood leukocytes 2 % [facility] 0-7 " monocytes as percent of blood leukocytes 6 % [facility] 4-13 " lymphocytes as percent of blood leukocytes 48 % [facility] 14-46 High " neutrophils as percent of blood leukocytes 43 % [facility] 40-74 " platelet count 208 X10E3/UL [facility] 140-415 " red blood cell distribution width 13.5 % [facility] 11.7-15.0 " mean corpuscular hemoglobin concentration, RBC 34.3 G/DL [facility] 32.0-36.0 " mean corpuscular hemoglobin, RBC 32.7 pg [facility] 27.0-34.0 " mean corpuscular volume, RBC 95 fL [facility] 80-98 " hematocrit, blood 47.0 % [facility] 36.0-50.0 " hemoglobin, blood 16.1 g/dL [facility] 12.5-17.0 " erythrocyte (RBC) count 4.93 X10E6/UL [facility] 4.10-5.60 " leukocyte count, blood 4.7 X10E3/UL [facility] 4.0-10.5 hepatitis B surface antigen Negative [facility] Negative hepatitis C antibody, serum <0.1 [facility] 0.0-0.9 Neisseria gonorrhoeae DNA probe Negative [facility] Negative " chlamydia DNA probe Negative [facility] Negative hepatitis B surface antigen Negative [facility] Negative " hepatitis C antibody, serum <0.1 [facility] 0.0-0.9 Neisseria gonorrhoeae DNA probe Negative [facility] Negative " chlamydia DNA probe Negative [facility] Negative HISTORY OF IMMUNIZATIONS No Information Available HISTORY OF MEDICATION USE Medication Instructions Dates Provider Comments NYSTATIN [id number] UNIT/GM EXTERNAL POWDER Apply to affected area two to three times daily after showering Jesus Mc KETOCONAZOLE 2 % EXTERNAL CREAM Apply to affected area daily x2 wks Jesus Mc DOXYCYCLINE HYCLATE 100 MG ORAL CAPSULE 1 by mouth twice a day - Jesus Mc CICLOPIROX OLAMINE 0.77 % EXTERNAL CREAM apply to affected area every 12 hours (pharmacist, you may substitute ointment or gel if better cost) - Jesus Cupit KETOCONAZOLE 2 % EXTERNAL CREAM apply to area twice a day - Michael Monge KETOCONAZOLE 2 % EXTERNAL CREAM apply to area twice a day - Michael Monge KETOCONAZOLE 2 % EXTERNAL CREAM apply to area twice a day - Saravanan Braden TESDAVID PERLES 100 MG ORAL CAPSULE 1 by mouth 3 times a day as needed for cough - Michael Monge CLARITIN 10 MG ORAL TABLET 1 by mouth every day for 7 days then As Needed for allergies - Michael Monge AZITHROMYCIN 250 MG ORAL TABLET 2 tablets by mouth on day one then one tablet by mouth each day for a total of 5 days - Michael Monge FLUCONAZOLE 200 MG ORAL TABLET 1 By Mouth once a week for 4 weeks - Michael Monge KETOCONAZOLE 2 % EXTERNAL CREAM apply to area twice a day - Michael Monge KETOCONAZOLE 2 % EXTERNAL CREAM apply to area twice a day - Donaldo Jackson KETOCONAZOLE 2 % EXTERNAL CREAM apply to area twice a day - Solo Cespedes KETOCONAZOLE 2 % EXTERNAL CREAM apply to area twice a day - Solo Cespedes SOCIAL HISTORY Date Observation Value Provider " is there any chance that you could be ? No Bret Apoorva " passive cigarette smoke exposure No Bret Apoorva " smoking status never smoker Bret Apoorva " alcohol use no Bret Apoorva " drug use, illicit marijuana Bret Apoorva " social history E&M Single. Not homeless. Born in [facility]. City: [place]. State: [place]. 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 Gender of partner(s): female. Bret Apoorva " social history reviewed E&M reviewed today Bret Apoorva drug use, illicit marijuana Daevkd Hillman " alcohol use no Dave Rafy " social history E&M Single. Not homeless. Born in [facility]. City: [place]. State: [place]. 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 Gender of partner(s): female. Dave Hillman " social history reviewed E&M reviewed today Dave Hillman " passive cigarette smoke exposure No Dave Hillman " smoking status never smoker Dave Hillman " Exercise Program Referral T Dave Hillman " Weight Management Counseling Provided T Dave Hillman " Nutrition intervention T Dave Hillman Exercise Program Referral T Porsha Yadav " Weight Management Counseling Provided T Porsha Yadav " Nutrition intervention T Porsha Yadav " drug use, illicit marijuana Porsha Yadav " alcohol use no Porsha Yadav " social history E&M Single. Not homeless. Born in [facility]. City: [place]. State: [place]. 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 Gender of partner(s): female. Porsha Yadav " social history reviewed E&M reviewed today Porsha Yadav " passive cigarette smoke exposure No Porsha Yadav " smoking status never smoker Porsha Yadav Exercise Program Referral T Michael Monge " Weight Management Counseling Provided T Michael Monge " Nutrition intervention T Michael Monge " drug use, illicit marijuana Marija Rowe " alcohol use no Channmarley Rowe " is there any chance that you could be ? No Channin Jae " smoking status never smoker Marija Rowe time of call 10/26/2017 7:34 AM Brittaney Siddiqui drug use, illicit marijuana Marija Rowe " alcohol use no Channin Jae " is there any chance that you could be ? No Channin Jae " smoking status never smoker Channin Jae Exercise Program Referral Geovanny Braden " Weight Management Counseling Provided T Saravanan Braden " Nutrition intervention Geovanny Braden " passive cigarette smoke exposure No Bret Apoorva " smoking status never smoker Bret Apoorva " alcohol use no Bret Apoorva " drug use, illicit marijuana Bret Apoorva " sex at male Bret Apoorva " social history E&M Single. Not homeless. Born [place]. City: [place]. State: [place]. 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 Gender of partner(s): female. Bret Guerin " social history reviewed E&M reviewed today Bret Guerin time of call 01/24/2016 11:52 AM Marija Rowe social history E&M Single. Not homeless. Born in [facility]. City: [place]. State: [place]. 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 Gender of partner(s): female. Michael Monge " social history reviewed E&M reviewed today Michael Monge " drug use, illicit marijuana Channin Jae " alcohol use no Channin Jae " smoking status never smoker Trudyin Jae drug use, illicit marijuana Nazjely Rafy " alcohol use no Nazjely Rafy " passive cigarette smoke exposure No Nazjely Rafy " smoking status never smoker Nazjely Rafy drug use, illicit Currently Jackie Fletcher " alcohol use Never Jackie Fletcher " passive cigarette smoke exposure No Jackie Fletcher " smoking status never smoker Jackie Fletcher social history E&M Single. Not homeless. Born in [facility]. City: [place]. State: [place]. 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 Gender of partner(s): female. Michael Monge " social history reviewed E&M reviewed today Michael Monge " Exercise Program Referral T Bessy Mosguera " Weight Management Counseling Provided T Bessy Mosguera " Nutrition intervention T Bessy Mosguera " passive cigarette smoke exposure Yes Bessy Mosguera " smoking status never smoker Bessy Mosguera smoking status never smoker Bessy Mosguera " Exercise Program Referral T Bessy Mosguera " Weight Management Counseling Provided T Bessy Mosguera " Nutrition intervention T Bessy Mosguera drug use, illicit, frequency daily Deborah Lito " drug use, illicit, drug of choice marijuana Deborah Lito " drug use, illicit Currently Deborah Morse social history E&M Single. Not homeless. Born in [facility]. City: [place]. State: [place]. 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 Gender of partner(s): female. Alyssa Arellano " social history reviewed E&M reviewed today Alyssa Arellano " passive cigarette smoke exposure Yes Alyssa Adan " smoking status current every day smoker Alyssa Arellano drug use, illicit, frequency few times per week Bessy Chanelselena " drug use, illicit, drug of choice marijuana Bessyayesha Buchananselena " drug use, illicit Currently Bessyayesha Buchananselena " alcohol use Never Bessy Chanelselena " passive cigarette smoke exposure Yes Bessy Johnson " smoking, advice to quit Yes Bessy Johnson " smoking status current every day smoker Bessyayesha Buchananselena " Exercise Program Referral T Bessyayesha Buchananselena " Weight Management Counseling Provided T Bessy Johnson " Nutrition intervention T Bessy Johnson smoking/tobacco cessation, patient education and counseling Education done Michael Monge " cigarette use Yes Michael Monge " social history reviewed E&M reviewed today Bessyayesha Buchananselena " social history E&M Single. Not homeless. Born in [facility]. City: [place]. State: [place]. 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 Gender of partner(s): female. Bessyayesha Buchananselena " Occupation #1 [employer]asc[employer] driver Bessyayesha Buchananselena " patient considered to be homeless No Bessy Chanelselena " passive cigarette smoke exposure Yes Bessy Johnson " tobacco use (cigarettes, cigar, chew, pipe) Currently Bessy Johnson tobacco use (cigarettes, cigar, chew, pipe) Currently Bessyayesha Buchanandiannaera FUNCTIONAL STATUS No Information Available MENTAL STATUS Date Observation Value Provider Generalized Anxiety Disorder Questionnaire - Question 2 0 Bret Guerin " Generalized Anxiety Disorder Questionnaire - Question 1 0 Bret Guerin mental status examination: orientation E&M oriented to time, place, and person Tyrone Mott " assessment of mood and affect E&M no depression, anxiety, or agitation Tyrone Mott " Generalized Anxiety Disorder Questionnaire - Question 2 0 Dave Hillman " Generalized Anxiety Disorder Questionnaire - Question 1 0 Dave Hillman mental status examination: orientation E&M oriented to time, place, and person Moreno Presley " Generalized Anxiety Disorder Questionnaire - Question 2 0 Porsha Yadav " Generalized Anxiety Disorder Questionnaire - Question 1 0 Porsha Yadav assessment of mood and affect E&M no depression, anxiety, or agitation Michael Monge " Generalized Anxiety Disorder Questionnaire - Question 2 0 Trudymarley Jae " Generalized Anxiety Disorder Questionnaire - Question 1 0 Marija Rowe Generalized Anxiety Disorder Questionnaire - Question 2 0 Marija Rowe " Generalized Anxiety Disorder Questionnaire - Question 1 0 Marija Rowe assessment of judgment and insight E&M intact Saravanan Braden " Generalized Anxiety Disorder Questionnaire - Question 2 0 Bret Guerin " Generalized Anxiety Disorder Questionnaire - Question 1 0 Bret Guerin Generalized Anxiety Disorder Questionnaire - Question 2 0 Marija Rowe " Generalized Anxiety Disorder Questionnaire - Question 1 0 Marija Rowe Generalized Anxiety Disorder Questionnaire - Question 2 0 Eleanor Hillman " Generalized Anxiety Disorder Questionnaire - Question 1 0 Eleanor Hillman Generalized Anxiety Disorder Questionnaire - Question 2 0 Jackie Fletcher " Generalized Anxiety Disorder Questionnaire - Question 1 0 Jackie Justine Generalized Anxiety Disorder Questionnaire - Question 2 0 Bessyayesha Buchananguraul " Generalized Anxiety Disorder Questionnaire - Question 1 0 Bessy Mosguera MEDICAL EQUIPMENT No Information Available FAMILY HISTORY No Information Available INSURANCE PROVIDERS No Information Available ADVANCE DIRECTIVES Name Date DISCUSSED - NO DECISION MADE TREATMENT PLAN Name follow-up if symptoms persist return to clinic return to clinic return to clinic return to clinic Date Name HBsAg Screen HCV Antibody RPR, Rfx Qn RPR/Confirm TP HIV 1/2 ANTIGEN/ANTIBODY, FOURTH GENERATION W/RFL Chlamydia/GC Amplification (Urine) Ct/GC ANITHA, Pharyngeal HIV 1/2 ANTIGEN/ANTIBODY, FOURTH GENERATION W/RFL RPR, Rfx Qn RPR/Confirm TP Chlamydia/GC Amplification (Urine) Lipid Panel Comp. Metabolic Panel (14) Hemoglobin A1c Lipid Panel HIV 1/2 ANTIGEN/ANTIBODY, FOURTH GENERATION W/RFL RPR, Rfx Qn RPR/Confirm TP Chlamydia/GC Amplification (Urine) H. pylori Stool Ag, EIA Ct/GC ANITHA, Pharyngeal HIV 1/2 ANTIGEN/ANTIBODY, FOURTH GENERATION W/RFL RPR, Rfx Qn RPR/Confirm TP HCV Antibody HBsAg Screen Chlamydia/GC Amplification RPR Lipid Panel HIV-1/O/2 Antibodies, Preliminary Test with Confirmation HCV Antibody HBsAg Screen Glucose, Serum Chlamydia/GC Amplification CBC With Differential/Platelet RPR Lipid Panel HIV-1/O/2 Antibodies, Preliminary Test with Confirmation HCV Antibody HBsAg Screen Glucose, Serum Chlamydia/GC Amplification CBC With Differential/Platelet Lipid Panel Comp. Metabolic Panel (14) CBC With Differential/Platelet HCV Antibody HBsAg Screen Chlamydia/GC Amplification Est Patient Exp Problem - 38240 Ofc Vst, Est Level IV Ofc Vst, Est Level II Ofc Vst, Est Level III Est Patient Exp Problem - 68445 Est Patient Exp Problem - 56307 Est Patient Problem Focus - 55348 Est Patient Exp Problem - 73354 Est Patient Exp Problem - 07792 Est Patient Nurse - Only Visit - 50042 Est Patient Exp Problem - 34520 Injection, penicillin g benzathine, 1.2 mu Rapid Flu - In House Rapid Strep - In House Ofc Vst, Est Level IV Handling of specimen for transfer Venipuncture Fluconazole 200 mg Rapid Strep - In House Condom - Male Handling of specimen for transfer Venipuncture Est Patient Exp Problem - 63854 Est Patient Exp Problem - 81403 Azithromycin, oral, 1 g Est Patient Exp Problem - 39675 Condom - Male Handling of specimen for transfer Venipuncture Ofc Vst, Est Level III Ofc Vst, Est Level III COH - RPR COH - HIV Handling of specimen for transfer from clinic to lab Venipuncture HISTORY OF PROCEDURES Procedure Date Procedure Name Provider Procedure Notes Status Injection, penicillin g benzathine, 1.2 mu Donaldo Jackson completed Rapid Flu - In House Donaldo Jackson completed Rapid Strep - In House Donaldo Jackson completed Venipuncture Michael Monge completed Fluconazole 200 mg Michael Monge completed Rapid Strep - In House Michael Monge completed Condom - Male [place] Fernau Quantity: 3 completed Venipuncture Solo Fernau completed Azithromycin, oral, 1 g Solo Fernau Quantity: completed Condom - Male Solo Fernau Quantity: 3 completed Venipuncture Solo Fernau completed Venipuncture Michael Monge completed GOALS No Information Available HEALTH CONCERNS No Information Available
--- OUTSIDE RECORDS SUMMARY | 2019-10-10 12:40 | XMS REPORT ---
[facility] Address Unknown Phone Unavailable Care Team Providers Care Clinical Radiologist Name Role Phone Unavailable Unavailable Problems This patient has no known problems. Allergies, Adverse Reactions, Alerts This patient has no known allergies or adverse reactions. Medications This patient has no known medications. Encounters Start Date/Time End Date/Time Encounter Type Admission Type Attending [facility] Facility Care Department Encounter ID 2019-10-07 14:20:00 2019-10-07 14:20:00 Emergency E [facility] [id number] 2019-04-12 20:04:00 2019-04-12 20:04:[address] [facility] [place] [place] [facility] 2019-03-31 19:36:00 2019-03-31 19:36:00 Emergency E [facility] [id number] 2019-03-15 09:46:00 2019-03-15 09:46:00 Emergency E [facility] [id number] 2019-03-03 14:24:00 2019-03-03 14:24:00 Emergency E [facility] [id number] 2019-01-27 19:16:00 2019-01-27 19:16:00 Emergency E [facility] [id number]
== END 2019-10-05 23:50 | disposition home or self-care (01) ==
LOC: FSED 23:17
DX: L03.311 Cellulitis of abdominal wall (principal)

== ENCOUNTER 2021-11-01 15:14 | Emergency (ER) | payer MEDICARE, OTHER ==
[~2021-11-01] VITALS: Ht 188 cm; Wt 114.4 kg
[2021-11-01] MEDS ORDERED: IBUPROFEN 600 MG TAB PO STA (17:48)
[2021-11-01] MEDS ORDERED: DEXAMETHASONE SOD PHOS 10 MG/1 ML VIAL IM NR (18:00)
[2021-11-01] MEDS ORDERED: LIDOCAINE VISC 2% SOLN 15 ML UDC PO ONE (18:00)
[2021-11-01] MEDS ORDERED: LIDOCAINE VISC 2% SOLN 15 ML UDC ONE (18:10)
[2021-11-01] MEDS ORDERED: DEXAMETHASONE SOD PHOS INJ 4 MG/ML SDV ONE (18:10)
[2021-11-01] MEDS ORDERED: IBUPROFEN 600 MG TAB ONE (18:10)
[2021-11-01] MEDS ORDERED: AUGMENTIN 875-1 EACH PO (18:21)
[2021-11-01] MEDS ORDERED: IBUPROFEN600 MG PO (18:22)
[2021-11-01] MEDS ORDERED: LIDOCAINE PO (18:30)
== END 2021-11-01 18:39 | disposition home or self-care (01) ==
LOC: FSED 16:20
DX: J02.9 Acute pharyngitis, unspecified (principal)
CPT/HCPCS: 83518; 96372; 99283; J1100

== ENCOUNTER 2022-09-18 10:23 | Emergency (ER) | payer MEDICARE, OTHER ==
[~2022-09-18] VITALS: Ht 188 cm; Wt 114.9 kg
[~2022-09-18 10:23] MED LIST: AUGMENTIN 875-1 EACH PO; IBUPROFEN600 MG PO; LIDOCAINE PO
[2022-09-18] MEDS ORDERED: AMOX TR-K CLV1 EAC2 PO (11:31)
== END 2022-09-18 11:39 | disposition home or self-care (01) ==
LOC: FSED 10:38
DX: L03.122 Acute lymphangitis of left axilla (principal); T50.B95A Adverse effect of other viral vaccines, initial encounter
CPT/HCPCS: 99283